=== PATIENT | male | born 1970 | race Caucasian/White ===

== ENCOUNTER 2022-12-26 17:41 | Emergency (ER) | payer OTHER, SELFPAY ==
--- NOTE | 2022-12-26 17:49 | ED.SKABFB ---
HPI - Skin/Abscess/Foreign Bdy General Chief complaint: Skin/Abscess/Foreign Body Stated complaint: rash Time Seen by Provider: 12/26/22 17:50 Source: patient Mode of arrival: ambulatory Limitations: no limitations History of Present Illness HPI narrative: Toro is a 52-year-old male patient presenting to clinic today with complaints of a rash. He reports the rash is been going on for approximately 2 weeks. States it is gradually improve some however is itchy and seems to be spreading. Started down on his foot and has now ended up on his legs and abdomen. He reports he has been using a hot tub at his home. No other else has this rash. Related Data Allergies Allergy/AdvReac Type Severity Reaction Status Date / Time No Known Allergies Allergy Verified 12/26/22 17:58 Review of Systems Review of Systems: Pertinent positives per HPI. Patient denies any fever, chills, headache, visual changes, dizziness, cough, runny nose, sore throat, shortness of breath, chest pain, palpitations, nausea, vomiting, diarrhea, constipation, abdominal pain, or any urinary issues. PMFSH Comments At the time of my signature, I reviewed and agree with the nursing past medical, surgical, social, and family history. There is no relevant family history pertinent to the patient complaint. Exam Narrative: General: Well-developed, well nourished, in no apparent distress Head: Normocephalic, atraumatic. Cardio: Regular rate and rhythm, s1 and s2 normal, no murmur appreciated. Resp: Clear to auscultation bilaterally, no rhonchi, rales, wheezing or rubs. Integumentary: [place], warm, and dry, pruritic, red, scaly circular appearance with cleared center, Course Course Emergency Course: Portions of this record may have been created with voice recognition software. Level of Care: Express Care Visit Vital Signs Vital signs: Vital Signs Temperature 37.1 C 12/26/22 17:53 Pulse Rate 96 12/26/22 17:53 Respiratory Rate 16 12/26/22 17:53 Blood Pressure 149/90 H 12/26/22 17:53 Pulse Oximetry 99 12/26/22 17:53 Oxygen Delivery Room Air 12/26/22 17:53 Temperature 37.1 C 12/26/22 17:53 Pulse Rate 96 12/26/22 17:53 Respiratory Rate 16 12/26/22 17:53 Blood Pressure 149/90 H 12/26/22 17:53 Pulse Oximetry 99 12/26/22 17:53 Oxygen Delivery Room Air 12/26/22 17:53 Vital signs reviewed MDM - Skin/Abscess/Foreign Bdy MDM Narrative Medical decision making narrative: At the time of visit patient is resting comfortably on the exam table. I suspect patient has tinea corpus. Prescription for taper dose of prednisone to help alleviate inflammation in itching and Diflucan was given to treat the tinea. Supportive measures were discussed with the patient he voiced understanding discharge instructions and agrees to treatment plan. Was instructed to discontinue the prednisone if the rash got worse. Differential Diagnosis Differential diagnosis: Likely abscess of skin or subcutaneous tissue, viral exanthem, dermatophytosis, urticaria, herpes zoster, allergic reaction to drug, cellulitis, eczema, insect bites, impetigo, contact dermatitis and other (Tinea corpus) Discharge Plan Discharge Clinical Impression: Tinea corporis Patient Disposition: Home, Self-Care Condition: Stable Instructions: Antibiotic Form, Tinea Corporis (ED) Additional Instructions: Take prednisone as directed Take Diflucan as directed Avoid scratching as this can cause a secondary infection May take benadryl 25-50mg every 6 hours as needed for itching. Follow up with your PCP 2 weeks if symptoms persist or sooner if they worsen Go to the Emergency Room if symptoms worsen- fever, rash spreading with treatment, shortness of breath, tongue swelling, drooling, or chest pain Prescriptions: New fluconazole [Diflucan] 200 mg tablet See Rx Instructions .ROUTE .COMPLEX Qty: 4 0RF Rx Instructions: 200 mg orally weekly x 4
[2022-12-26 17:53] VITALS: BP 149/90; PULSE 96; RESP 16; TEMP 37.1; O2SAT 99
== END 2022-12-26 18:14 | disposition home or self-care (01) ==
PROVIDERS: Emergency Provider Nurse Practitioner Family
DX: B35.4 Tinea corporis (principal)
CPT/HCPCS: 99203; G0463